=== PATIENT | male | born 1970 ===

== ENCOUNTER 2018-10-10 06:37 | Day surgery (SDC) | payer OTHER ==
[~2018-10-10] VITALS: Ht 182.9 cm; Wt 72.6 kg
[2018-10-10] MEDS ORDERED: TAMSULOSIN0.4 MG PO (07:15)
[2018-10-10 10:08] VITALS: BP 114/72
== END 2018-10-10 10:45 | DRG 352 ==
LOC: ORM 06:37
PROVIDERS: ATTEND Surgery
PROC: 0YU50JZ Supplement Right Inguinal Region with Synthetic Substitute, Open Approach (ICD-10-PCS; principal; 2018-10-10)
DX: K40.90 Unilateral inguinal hernia, without obstruction or gangrene, not specified as recurrent (principal); E78.5 Hyperlipidemia, unspecified; B19.20 Unspecified viral hepatitis C without hepatic coma; N40.0 Benign prostatic hyperplasia without lower urinary tract symptoms; G89.29 Other chronic pain; M54.9 Dorsalgia, unspecified
CPT/HCPCS: C9290